=== PATIENT | female | born 1980 | race Caucasian/White ===

== ENCOUNTER 2020-05-31 18:29 | Emergency (ER) | payer SELFPAY ==
[2020-05-31 18:36] VITALS: BP 124/70; PULSE 104; RESP 16; TEMP 36.3; O2SAT 100; BMI 25.4
--- NOTE | 2020-05-31 20:18 | ED_ITS ---
HPI - Extremity Problem General: Chief complaint: Extremity Problem,Nontraumatic Stated complaint: SWOLLEN FEET Time Seen by Provider: 05/31/20 20:18 History of Present Illness: HPI Narrative: Patient is a 39-year-old female comes to the ED with bilateral feet swelling and erythema/warmth of skin. Approximately 3 days ago patient was at a friend's house and they had a couple new puppies. She said the puppies were biting and scratching at her feet a lot that day. She noticed 2 days ago she started getting some swelling and redness in her feet. Today the swelling and redness in both right and left feet has gotten worse and is more painful. Right foot is a little more painful and swollen than the left. Associated symptoms: Deny chest pain, fever(s) or rash Review of Systems Const: Denies: fever(s), chills or fatigue Eyes: Denies: change in vision or eye discomfort ENMT: Denies: throat pain, odynophagia, nasal discharge or nasal congestion Card: Denies: chest pain, palpitations, edema, swelling of feet/ankles, dyspnea on exertion or orthopnea Resp: Denies: dyspnea, productive cough or non-productive cough GI: Denies: abdominal pain, nausea, vomiting, diarrhea, constipation or hematochezia : Denies: flank pain, dysuria or hematuria Musc: Denies: neck pain, back pain or extremity swelling Skin/Breast: Reports: erythema (Redness on feet bilaterally.), skin tenderness (Bilateral feet around the heels) and skin swelling (Bilateral feet around the heels); Denies: rash Neuro: Denies: headache(s), numbness in extremities or weakness in extremities Physical Exam Const: COMMON NORMALS: no acute distress, patient oriented x3 and alert GENERAL APPEARANCE: cooperative and comfortable HENMT: COMMON NORMALS: normocephalic HEAD & SCALP: normocephalic MOUTH: Normal oral and palatal mucosa present THROAT: posterior oropharynx normal and uvula midline Eye: COMMON NORMALS: Equal, round and reactive pupils present PUPIL: Yes Equal, round and reactive pupils present Neck/C-Spine: COMMON NORMALS: supple GENERAL: Yes normal visual inspection Resp: COMMON NORMALS: normal respiratory effort, No retractions, No use of accessory muscles and clear to auscultation bilaterally AUSCULTATION: clear to auscultation bilaterally Cardio: COMMON NORMALS: regular rate, regular rhythm, S1 normal heart sound present, S2 normal heart sound present, No gallops present (Cardio), No clicks present (Cardio), No murmurs present (Cardio) and Peripheral pulses 2+ throughout RATE: regular rate RHYTHM: regular rhythm HEART SOUNDS: S1 normal heart sound present and S2 normal heart sound present PERIPHERAL PULSES: Peripheral pulses 2+ throughout GI: COMMON NORMALS: Normal to inspection, nondistended, normoactive bowel sounds present, Soft to palpation, non-tender and no masses PALPATION: Yes Soft to palpation : COMMON NORMALS: Yes no CVA tenderness BLADDER/KIDNEY EXAM: Yes no CVA tenderness Back/Pelvis: COMMON NORMALS: no CVA tenderness Extremity: NARRATIVE EXTREMITY EXAM: Both right and left heels edema, erythema, warmth and tenderness. No purulent drainage seen. Findings suggestive of cellulitis. No red streaking seen up the legs bilaterally. GENERAL: Yes normal exam except as noted and Yes edema (In the feet around heels bilaterally. Nonpitting edema.) Neuro: COMMON NORMALS: patient oriented x3 and moves all extremities SENSORIUM/ORIENTATION: Yes alert Skin: NARRATIVE SKIN EXAM: Both right and left heels edema, erythema, warmth and tenderness. No purulent drainage seen. Findings suggestive of cellulitis. No red streaking seen up the legs bilaterally. Course Vital Signs: Vital signs: Vital Signs Temperature 97.3 F L 05/31/20 18:36 Pulse Rate 80 05/31/20 21:43 Respiratory Rate 16 05/31/20 21:43 Blood Pressure 116/71 05/31/20 21:43 Pulse Oximetry 100 05/31/20 21:43 MDM - Extremity (Nontraumatic) MDM Narrative: Medical decision making narrative: Patient is a 39-year-old female comes to the ED with bilateral foot edema, pain, erythema and warmth. Right before symptoms started patient says she was at one of her family's houses and they had some puppies that were constantly scratching and biting her feet. Physical exam findings suggestive of developing cellulitis. White blood cell count 11.1 rest of CBC was unremarkable. Potassium 2.8 and the rest of CMP was unremarkable. Patient was given IV Rocephin and p.o. potassium tablet. Patient diagnosed with cellulitis and hypokalemia. Patient was discharged with a prescription for potassium chloride 20 mEq and Augmentin to treat cellulitis. Return to ED precautions given. Follow-up with PCP in 5 days to reevaluate cellulitis. Patient understood agree with plan. Lab Data: Attestation: I reviewed the patient's lab results. Labs: Lab Results 05/31/20 05/31/20 Range/Units 20:28 20:28 WBC 11.1 H (4.0-10.0) 10^3/ uL RBC 4.44 (4.1-5.3) 10^6/u L Hgb 13.7 (11.5-15.3) g/dL Hct 41.6 (37.0-47.0) % MCV 93.7 (81-99) fL MCH 30.9 (28.0-34.0) pg MCHC 32.9 (30.0-36.0) g/dL RDW 12.3 (12.1-15.1) % Plt Count 261 (130-400) 10^3/c mm MPV 10.9 H (7.4-10.4) fL Neut % (Auto) 65.6 % Lymph % (Auto) 26.1 % [place] % (Auto) 5.8 % Eos % (Auto) 1.8 % Baso % (Auto) 0.4 % Neut # (Auto) 7.30 (1.8-7.7) 10^3/u L Lymph # (Auto) 2.9 (0.8-4.8) 10^3/u L [place] # (Auto) 0.7 (0.2-0.9) 10^3/u L Eos # (Auto) 0.2 (0.0-0.8) 10^3/u L Baso # (Auto) 0.0 (0.0-0.1) 10^3/u L Nucleated RBC % (a uto) 0 % Nucleated RBCs # 0.0 /100WBC Sodium 141 (136-145) mmol/L Potassium 2.8 L* (3.5-5.1) mmol/L Chloride 103 (98-107) mmol/L Carbon Dioxide 30 H (22-29) mmol/L Anion Gap 10.8 (5-19) BUN 11 (6-20) mg/dL Creatinine 0.6 (0.5-0.9) mg/dL GFR Calculation 110.7 (90-130) mL/min Glucose 103 (65-115) mg/dL Calculated Osmolal ity 292 (285-295) mOsm/k g Calcium 9.5 (8.5-10.5) mg/dL Total Bilirubin 0.2 (0.15-1.2) mg/dL AST 12 (0-32) U/L ALT 12 (0-33) U/L Alkaline Phosphata se 76 (35-105) IU/L Total Protein 6.9 (6.6-8.7) g/dL Albumin 4.2 (3.5-5.2) g/dL Globulin 2.7 (1.3-4.6) g/dL Discharge Plan Discharge Patient Disposition: Home Clinical Impression: Hypokalemia Cellulitis Qualifiers: Site of cellulitis: extremity Site of cellulitis of extremity: lower extremity Laterality: unspecified laterality Qualified Code(s): L03.119 - Cellulitis of unspecified part of limb Condition: Stable Prescriptions: New Augmentin 500-125 mg tablet 1 tab PO BID 10 Days Qty: 20 RF: 0 potassium chloride 20 mEq packet 20 meq PO DAILY 4 Days Qty: 30 RF: 0 No Action Excedrin Extra Strength 250-250-65 mg Tablet 1 tab PO Q6H PRN (Reason: Pain) RF: 0 Discharge Orders: Discharge ED (Routine); Ordered 05/31/20 Ordered By: Bobo Fabian Referrals: Daniel Perez MD [Primary Care Provider] - Discharge Diet: Regular Discharge Activity: Resume usual activity Patient Instructions: Cellulitis (ED) Activity Restrictions/Additional Instructions: Follow-up with medical provider as directed in 5 days to reevaluate cellulitis. Take medications as prescribed. You should start seen improvement after being on antibiotics for 3 days. Return to the ER or your medical provider if condition worsens. Please read and understand discharge instructions. If any questions, please ask. Coding Level of Care Code ED Abrasive Coating Machine Operator for Vikag Fwd Exam Comprehensive
[2020-05-31] MEDS: sodium chloride 0.9% 500 ML 999 ML IV (20:52)
[2020-05-31] MEDS: cefTRIAXone 2,000 MG in sodium chloride 0.9% (plus) 50 ML 100 MG IV (20:52)
[2020-05-31 21:00] LABS: Basophils % 0.4 %; Eosinophils # 0.2 10^3/uL (0.0-0.8); Eosinophils % 1.8 %; Hematocrit 41.6 % (37.0-47.0); Hemoglobin 13.7 g/dL (11.5-15.3); Lymphocytes # 2.9 10^3/uL (0.8-4.8); Lymphocytes % 26.1 %; Mean Corpuscular HGB Conc 32.9 g/dL (30.0-36.0); Mean Corpuscular Hemoglobin 30.9 pg (28.0-34.0); Mean Corpuscular Volume 93.7 fL (81-99); Mean Platelet Volume 10.9 fL (7.4-10.4); Monocytes # 0.7 10^3/uL (0.2-0.9); Monocytes % 5.8 %; Neutrophils % 65.6 %; Nucleated Red Blood Cells % 0 %; Platelet Count 261 10^3/cmm (130-400); Red Blood Count 4.44 10^6/uL (4.1-5.3); Red Cell Distribution Width 12.3 % (12.1-15.1); White Blood Count 11.1 10^3/uL (4.0-10.0)
[2020-05-31 21:24] LABS: Alanine Aminotransferase 12 U/L (0-33); Albumin Level 4.2 g/dL (3.5-5.2); Alkaline Phosphatase 76 IU/L (35-105); Anion Gap 10.8 (5-19); Aspartate Amino Transferase 12 U/L (0-32); Blood Urea Nitrogen 11 mg/dL (6-20); Calcium 9.5 mg/dL (8.5-10.5); Carbon Dioxide 30 mmol/L (22-29); Chloride 103 mmol/L (98-107); Creatinine Clr Calc Pharmacy 127.1262; Globulin 2.7 g/dL (1.3-4.6); Glomerular Filtration Rate 110.7 mL/min (90-130); Glucose 103 mg/dL (65-115); Osmolality Calculated 292 mOsm/kg (285-295); Sodium 141 mmol/L (136-145); Total Bilirubin 0.2 mg/dL (0.15-1.2); Total Protein 6.9 g/dL (6.6-8.7)
[2020-05-31 21:43] VITALS: BP 116/71; PULSE 80; RESP 16; O2SAT 100
[2020-05-31 21:47] LABS: Potassium 2.8 mmol/L (3.5-5.1)
[2020-05-31] MEDS: potassium chloride ER 20 mEq Tablet PO (22:05)
== END 2020-05-31 21:45 | disposition home or self-care (01) ==
PROVIDERS: Emergency Provider Physician Assistant; PCP Family Medicine
DX: L03.116 Cellulitis of left lower limb (principal); L03.115 Cellulitis of right lower limb; E87.6 Hypokalemia
CPT/HCPCS: 12345; 80053; 85025; 87040; 96365; 96375; 99281; 99283; J0696; J2930; J7040

== ENCOUNTER 2020-06-07 23:49 | Emergency (ER) | payer SELFPAY ==
[2020-06-07 23:54] VITALS: BP 131/92; PULSE 101; RESP 16; TEMP 36.7; O2SAT 100; BMI 25.0
[2020-06-08] VITALS (8 sets, daily range): BP systolic 126–143; BP diastolic 67–87; PULSE 83–103; RESP 16–17; TEMP 36.7; O2SAT 100
--- NOTE | 2020-06-08 00:06 | W.ED.ARRPALP ---
HPI - Arrhythmia/Palpitations General: Chief Complaint: Arrhythmia/Palpitations Stated Complaint: erratic hr Time Seen by Provider: 06/08/20 00:05 History of Present Illness: HPI narrative: 39-year-old female comes in with palpitations. She states that she would feel her heart speed up to 111 and down to 82. This is gone on/off for the past 2 days. She does admit she has been having some anxiety resulting in chest pain. Patient also recently was diagnosed with cellulitis in her right foot. She states it is doing much better at this time. She states she is not having any chest pain now. MD complaint: heart racing and palpitations Onset (ago): day(s) (2) Duration: intermittent Severity: mild Context: occurred during rest Associated symptoms: Reports anxiety and nausea; Deny cough, diaphoresis, paresthesias, pre-syncope, sense of impending doom, short of breath, syncope or vomiting Review of Systems General: Reports: 10 or more systems reviewed and unremarkable except in HPI and below Const: Denies: diaphoresis Card: Reports: chest pain (With anxiety) and palpitations; Denies: edema, swelling of feet/ankles, lightheadedness, syncope, pre-syncope, leg pain with exertion or acrocyanosis GI: Reports: nausea; Denies: vomiting Musc: Reports: joint redness (Right foot) and joint warmth; Denies: extremity swelling, joint pain, joint swelling, joint stiffness or limited range of motion Skin/Breast: Reports: other (Patient's right foot is minimally erythematous, it does ritchie well. ) Psych: Reports: anxiety [facility] Female Reproductive History: Date of last menstrual period: 05/29/20 Physical Exam Narrative: EXAM NARRATIVE: 39-year-old female appears to be in no acute distress. Const: COMMON NORMALS: no acute distress, average body habitus, patient oriented x3, no limitations, healthy appearing, alert and well nourished GENERAL APPEARANCE: well kempt Neck/C-Spine: COMMON NORMALS: full ROM, supple and no JVD Chest: COMMONS NORMALS: normal inspection of the chest and normal palpation of entire chest wall Resp: COMMON NORMALS: normal respiratory effort, No use of accessory muscles and clear to auscultation bilaterally EFFORT & INSPECTION: Yes able to speak in complete sentences, Yes symmetric chest movement, No tachypneic and No respiratory distress AUSCULTATION: clear to auscultation bilaterally Cardio: COMMON NORMALS: no JVD, regular rate, regular rhythm, No gallops present (Cardio), No clicks present (Cardio), No murmurs present (Cardio), No rub (Cardio) and Peripheral pulses 2+ throughout RATE: regular rate RHYTHM: regular rhythm PERIPHERAL PULSES: Peripheral pulses 2+ throughout GI: COMMON NORMALS: Normal to inspection, nondistended, normoactive bowel sounds present, Soft to palpation, non-tender, No hepatosplenomegaly present, no masses and no bruits INSPECTION: Yes normal to inspection PALPATION: Yes Soft to palpation and Yes No hepatosplenomegaly present : COMMON NORMALS: Yes no CVA tenderness BLADDER/KIDNEY EXAM: Yes no CVA tenderness Back/Pelvis: COMMON NORMALS: no CVA tenderness Neuro: COMMON NORMALS: patient oriented x3 SENSORIUM/ORIENTATION: Yes alert Psych: COMMON NORMALS: mental status grossly normal, Normal thought process present, cooperative, normal affect, speech normal and activity/motor behavior normal APPEARANCE: Yes grossly normal and Yes well kempt ATTITUDE: Yes calm and Yes engaged SPEECH: Yes normal speech MOOD & AFFECT: Yes anxious (Mildly anxious) THOUGHT PROCESS: Normal thought process present Skin: COMMON NORMALS: no rashes or lesions noted, no wounds, turgor normal and no jaundice GENERAL SKIN EXAM: no rashes or lesions noted and turgor normal Course Vital Signs: Vital signs: Vital Signs Temperature 98.1 F 06/08/20 03:46 Pulse Rate 88 06/08/20 03:46 Respiratory Rate 17 06/08/20 03:46 Blood Pressure 126/82 06/08/20 03:46 Pulse Oximetry 100 06/08/20 03:46 MDM - Arrhythmia/Palpitations Lab Data: Labs: Lab Results 06/08/20 06/08/20 06/08/20 Range/Units 00:51 00:51 00:51 WBC 8.1 (4.0-10.0) 10^3/ uL RBC 4.36 (4.1-5.3) 10^6/u L Hgb 13.3 (11.5-15.3) g/dL Hct 41.3 (37.0-47.0) % MCV 94.7 (81-99) fL MCH 30.5 (28.0-34.0) pg MCHC 32.2 (30.0-36.0) g/dL RDW 12.4 (12.1-15.1) % Plt Count 289 (130-400) 10^3/c mm MPV 9.6 (7.4-10.4) fL Neut % (Auto) 56.7 % Lymph % (Auto) 34.4 % [place] % (Auto) 6.4 % Eos % (Auto) 2.1 % Baso % (Auto) 0.2 % Neut # (Auto) 4.59 (1.8-7.7) 10^3/u L Lymph # (Auto) 2.8 (0.8-4.8) 10^3/u L [place] # (Auto) 0.5 (0.2-0.9) 10^3/u L Eos # (Auto) 0.2 (0.0-0.8) 10^3/u L Baso # (Auto) 0.0 (0.0-0.1) 10^3/u L Nucleated RBC % (a uto) 0 % Nucleated RBCs # 0.0 /100WBC Sodium 138 (136-145) mmol/L Potassium 3.3 L (3.5-5.1) mmol/L Chloride 100 (98-107) mmol/L Carbon Dioxide 31 H (22-29) mmol/L Anion Gap 10.3 (5-19) BUN 8 (6-20) mg/dL Creatinine 0.6 (0.5-0.9) mg/dL GFR Calculation 110.7 (90-130) mL/min Glucose 90 (65-115) mg/dL Calculated Osmolal ity 284 L (285-295) mOsm/k g Calcium 9.1 (8.5-10.5) mg/dL Magnesium 2.0 (1.7-2.3) mg/dL Total Bilirubin 0.2 (0.15-1.2) mg/dL AST 10 (0-32) U/L ALT 13 (0-33) U/L Alkaline Phosphata se 76 (35-105) IU/L Troponin T Baselin e 6 (0-10) ng/L Total Protein 7.0 (6.6-8.7) g/dL Albumin 4.2 (3.5-5.2) g/dL Globulin 2.8 (1.3-4.6) g/dL Discharge Plan Discharge Patient Disposition: Home Clinical Impression: Palpitations, Acute hypokalemia, Tobacco abuse Condition: Stable Prescriptions: No Action Excedrin Extra Strength 250-250-65 mg Tablet 1 tab PO Q6H PRN (Reason: Pain) RF: 0 Augmentin 500-125 mg tablet 1 tab PO BID 10 Days Qty: 20 RF: 0 Discharge Orders: Discharge ED (Routine); Ordered 06/08/20 Ordered By: Jack Blanton Referrals: Daniel Perez MD [Primary Care Provider] - Discharge Diet: Advance as tolerated Discharge Activity: Resume usual activity Activity Restrictions/Additional Instructions: Continue the Augmentin and potassium . Coding Level of Care Code ED Ct Mri Technologist for Vikag Fwd Exam Comprehensive
--- NOTE | 2020-06-08 00:07 | XR_ITS ---
WS: [id number] Portable AP upright chest, 06/08/2020 Clinical Data: Palpitations Comparison: PA chest, 03/25/2011. Findings: No nodules, masses or effusions are seen. The heart is normal. The pulmonary vascularity is not increased. No pneumonia or pneumothorax is seen. XR/XR chest 1V portable [id number] Impression: Negative chest.
[2020-06-08 01:01] LABS: Basophils % 0.2 %; Eosinophils # 0.2 10^3/uL (0.0-0.8); Eosinophils % 2.1 %; Hematocrit 41.3 % (37.0-47.0); Hemoglobin 13.3 g/dL (11.5-15.3); Lymphocytes # 2.8 10^3/uL (0.8-4.8); Lymphocytes % 34.4 %; Mean Corpuscular HGB Conc 32.2 g/dL (30.0-36.0); Mean Corpuscular Hemoglobin 30.5 pg (28.0-34.0); Mean Corpuscular Volume 94.7 fL (81-99); Mean Platelet Volume 9.6 fL (7.4-10.4); Monocytes # 0.5 10^3/uL (0.2-0.9); Monocytes % 6.4 %; Neutrophils # 4.59 10^3/uL (1.8-7.7); Neutrophils % 56.7 %; Nucleated Red Blood Cells % 0 %; Platelet Count 289 10^3/cmm (130-400); Red Blood Count 4.36 10^6/uL (4.1-5.3); Red Cell Distribution Width 12.4 % (12.1-15.1); White Blood Count 8.1 10^3/uL (4.0-10.0)
[2020-06-08 01:23] LABS: Alanine Aminotransferase 13 U/L (0-33); Albumin Level 4.2 g/dL (3.5-5.2); Alkaline Phosphatase 76 IU/L (35-105); Anion Gap 10.3 (5-19); Aspartate Amino Transferase 10 U/L (0-32); Blood Urea Nitrogen 8 mg/dL (6-20); Calcium 9.1 mg/dL (8.5-10.5); Carbon Dioxide 31 mmol/L (22-29); Chloride 100 mmol/L (98-107); Globulin 2.8 g/dL (1.3-4.6); Glomerular Filtration Rate 110.7 mL/min (90-130); Glucose 90 mg/dL (65-115); Osmolality Calculated 284 mOsm/kg (285-295); Potassium 3.3 mmol/L (3.5-5.1); Sodium 138 mmol/L (136-145); Total Bilirubin 0.2 mg/dL (0.15-1.2)
[2020-06-08 02:26] LABS: Troponin(5th) Baseline 6 ng/L (0-10)
== END 2020-06-08 03:46 | disposition home or self-care (01) ==
PROVIDERS: Emergency Provider Emergency Medicine; PCP Family Medicine
DX: R00.2 Palpitations (principal); E87.6 Hypokalemia; Z72.0 Tobacco use
CPT/HCPCS: 12345; 71045; 80053; 83735; 84484; 85025; 99282; 99283

== ENCOUNTER 2021-02-01 14:09 | Emergency (ER) | payer SELFPAY ==
[2021-02-01 14:29] VITALS: BP 117/72; PULSE 109; RESP 18; TEMP 36.9; O2SAT 99; BMI 25.0
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
[2021-02-01 15:03] VITALS: BP 124/74; PULSE 71; RESP 18; TEMP 36.7; O2SAT 99
== END 2021-02-01 16:38 | disposition home or self-care (01) ==
PROVIDERS: Emergency Provider Physician Assistant
DX: M62.830 Muscle spasm of back (principal); V47.5XXA Car driver injured in collision with fixed or stationary object in traffic accident, initial encounter
CPT/HCPCS: 72100; 99282

== ENCOUNTER 2023-05-21 22:47 | Emergency (ER) | payer OTHER, SELFPAY ==
[2023-05-21 22:50] VITALS: BP 137/99; PULSE 129; RESP 23; TEMP 36.9; O2SAT 98; BMI 25.0
--- NOTE | 2023-05-21 22:56 | ECG_ITS ---
[facility] Test Date: 2023-05-21 Pat Name: Nafisa Woodard Department: Room: Gender: Female Art Instructor: : 1980 Requested By: Owen Mcclellan Order Number: [id number] Thom MD: Bang June M.D. Measurements Intervals Ellis Rate: 129 P: 74 OK: 147 QRS: 20 QRSD: 71 T: 68 QT: 333 QTc: 489 Interpretive Statements SINUS TACHYCARDIA NONSPECIFIC T-WAVE ABNORMALITY No previous ECG available for comparison Electronically Signed On 05-22-2023 7:40:26 PEDAL ASSEMBLER by Bang June M.D. [email or web address] Medicalh[facility] hospitalAlder Biopharmaceuticalsgerman hospital.mFoundry/store/NU/[id number] [email or web address]
[2023-05-21 23:04] LABS: Glucose Point of Care 112 mg/dL (70-110)
--- NOTE | 2023-05-21 23:04 | CTR_ITS ---
PROCEDURE INFORMATION: Exam: CTA Chest With Contrast Exam date and time: 05/21/2023 11:18 PM Age: 42 years old Clinical indication: Dyspnea and tachypnea; Additional info: Covid positive, cp, tachycardia, dyspnea, tachypnea TECHNIQUE: Imaging protocol: Computed tomographic angiography of the chest with contrast. Exam focused on the arteries. 3D rendering (Not supervised by radiologist): MIP and/or 3D reconstructed images were created by the technologist. Radiation optimization: All CT scans at this facility use at least one of these dose optimization techniques: automated exposure control; mA and/or kV adjustment per patient size (includes targeted exams where dose is matched to clinical indication); or iterative reconstruction. Contrast material: OMNI 350; Contrast volume: 80 ml; Contrast route: INTRAVENOUS (IV); COMPARISON: CR XR chest 1V portable [id number] 06/08/2020 12:24 AM RADIATION DOSE METRICS: Total DLP (mGy-cm): 541.68 FINDINGS: Pulmonary arteries: No pulmonary embolus. Aorta: Unremarkable. No aortic aneurysm. No aortic dissection. Lungs: No focal consolidation, pleural effusion or suspicious pulmonary nodules or masses. Pleural spaces: See Lungs finding. Heart: Unremarkable. No cardiomegaly. No pericardial effusion. Lymph nodes: Unremarkable. No enlarged lymph nodes. Gallbladder and bile ducts: The gallbladder is absent. Bones/joints: Unremarkable. No acute fracture. Soft tissues: Unremarkable. CT/CT angio chest PE protcl [id number] IMPRESSION: 1. No pulmonary embolus. 2. No focal consolidation, pleural effusion or suspicious pulmonary nodules or masses.
--- NOTE | 2023-05-21 23:09 | ED_ITS ---
HPI - Chest Pain 2 General: Chief Complaint: Chest Pain Stated Complaint: cp and neck pain Time Seen by Provider: 05/21/23 22:56 History of Present Illness: Patient presents to the ER with intermittent chest pain/pressure. Patient said this started about a week ago. It is worse with inspiration. Patient got diagnosed with COVID at [facility] in [place] about a week ago. Patient did not have this before then. Patient denies any fever chills shortness of breath. Patient is tachycardic and tachypneic. Patient does have a history of migraines and low potassium. Review of Systems 2 General: Reports: 10 or more systems reviewed and unremarkable except in HPI and below Physical Exam 2 Const: COMMON NORMALS: no acute distress, average body habitus, patient oriented x3, no limitations, healthy appearing, alert and well nourished HENMT: COMMON NORMALS: normocephalic, atraumatic, hearing grossly normal bilaterally, external ears normal, Normal external nose present, moist oral mucous membranes and oropharynx normal HEAD & SCALP: normocephalic and atraumatic NOSE: Normal external nose present EXTERNAL EAR: Yes external ears normal Eye: COMMON NORMALS: Equal, round and reactive pupils present, EOMs intact bilaterally, conjunctivae normal and no scleral icterus CONJUNCTIVA: Yes conjunctivae normal PUPIL: Yes Equal, round and reactive pupils present Neck/C-Spine: COMMON NORMALS: full ROM, no lymphadenopathy, supple, no meningeal signs, no JVD and Thyroid normal THYROID: Thyroid normal Chest: COMMONS NORMALS: normal inspection of the chest and normal palpation of entire chest wall Resp: COMMON NORMALS: normal respiratory effort, No retractions, No use of accessory muscles and clear to auscultation bilaterally AUSCULTATION: clear to auscultation bilaterally Cardio: COMMON NORMALS: no JVD, regular rate, regular rhythm, S1 normal heart sound present, S2 normal heart sound present, No gallops present (Cardio), No clicks present (Cardio), No murmurs present (Cardio) and No rub (Cardio) R ATE: regular rate RHYTHM: regular rhythm HEART SOUNDS: S1 normal heart sound present and S2 normal heart sound present GI: COMMON NORMALS: Normal to inspection, nondistended, normoactive bowel sounds present, Soft to palpation, non-tender, No hepatosplenomegaly present and no masses PALPATION: Yes Soft to palpation and Yes No hepatosplenomegaly present Neuro: COMMON NORMALS: patient oriented x3 SENSORIUM/ORIENTATION: Yes alert MENINGEAL SIGNS: Yes no meningeal signs Course 2 Vital Signs: Vital signs: Vital Signs Temperature 98.4 F 05/21/23 22:50 Pulse Rate 99 05/22/23 01:15 Respiratory Rate 23 H 05/21/23 22:50 Blood Pressure 137/99 05/22/23 01:15 Pulse Oximetry 94 05/22/23 01:15 Oxygen Delivery Me thod Room Air 05/22/23 01:15 MDM - Chest Pain Medical Decision Making Patient was worked up in a standard chest pain fashion and included a CTA due to her COVID positivity. All of which was essentially negative except for mildly elevated white blood cell count of 13.89. Patient be diagnosed with atypical chest pain and COVID and should follow-up with her PCP within the next 7 to 10 days on an as-needed basis. Differential Diagnosis Unlikely acute massive pulmonary embolism, acute respiratory failure, acute myocardial infarction, cardiac arrest or sudden cardiac Medical Records I reviewed the patient's medical records. Lab Data I reviewed the patient's lab results. 05/21/23 22:59 05/21/23 22:59 Radiology Impressions Chest CTA 05/21/23 23:04 IMPRESSION: 1. No pulmonary embolus. 2. No focal consolidation, pleural effusion or suspicious pulmonary nodules or masses. Laboratory Results WBC 13.89 10^3/uL (3.29-11.43) H 05/21/23 22:59 RBC 5.24 10^6/uL (3.85-5.65) 05/21/23 22:59 Hgb 16.10 g/dL (11.27-16.99) 05/21/23 22:59 Hct 47.2 % (36-47) H 05/21/23 22:59 MCV 90.1 fl (85-98) 05/21/23 22:59 MCH 30.7 pg (27-33) 05/21/23 22:59 MCHC 34.1 g/dL (30-55) 05/21/23 22:59 RDW 12.6 % (12.1-15.1) 05/21/23 22:59 Plt Count 343 10^3/cmm (157-399) 05/21/23 22:59 MPV 9.3 fL (7.4-10.4) 05/21/23 22:59 Neut % (Auto) 68.7 % 05/21/23 22:59 Lymph % (Auto) 24.9 % 05/21/23 22:59 [place] % (Auto) 4.6 % 05/21/23 22:59 Eos % (Auto) 1.1 % 05/21/23 22:59 Baso % (Auto) 0.3 % 05/21/23 22:59 Neut # (Auto) 9.55 10^3/uL (1.8-7.7) H 05/21/23 22:59 Lymph # (Auto) 3.5 10^3/uL (0.8-4.8) 05/21/23 22:59 [place] # (Auto) 0.6 10^3/uL (0.2-0.9) 05/21/23 22:59 Eos # (Auto) 0.2 10^3/uL (0.0-0.8) 05/21/23 22:59 Baso # (Auto) 0.0 10^3/uL (0.0-0.1) 05/21/23 22:59 Nucleated RBC % (auto) 0 % 05/21/23 22:59 Nucleated RBCs # 0.0 /100WBC 05/21/23 22:59 Sodium 138 mmol/L (136-145) 05/21/23 22:59 Potassium 4.3 mmol/L (3.5-5.1) 05/21/23 22:59 Chloride 99 mmol/L (98-107) 05/21/23 22:59 Carbon Dioxide 28 mmol/L (22-29) 05/21/23 22:59 Anion Gap 15.3 (5-19) 05/21/23 22:59 BUN 11 mg/dL (6-20) 05/21/23 22:59 Creatinine 0.7 mg/dL (0.5-0.9) 05/21/23 22:59 GFR Calculation 91.3 mL/min (90-130) 05/21/23 22:59 Glucose 112 mg/dL (65-115) 05/21/23 22:59 POC Glucose 112 mg/dL (70-110) H 05/21/23 23:01 Calculated Osmolality 286 mOsm/kg (285-295) 05/21/23 22:59 Calcium 10.1 mg/dL (8.5-10.5) 05/21/23 22:59 Total Bilirubin 0.4 mg/dL (0.15-1.2) 05/21/23 22:59 AST 12 U/L (0-32) 05/21/23 22:59 ALT 13 U/L (0-33) 05/21/23 22:59 Alkaline Phosphatase 73 U/L (35-105) 05/21/23 22:59 Troponin T Baseline 7 ng/L (0-10) 05/21/23 22:59 Troponin T 120 Minute 6.00 ng/L (0-10) 05/22/23 01:22 Delta Troponin T -1.00 ABS# (0-10) L 05/22/23 01:22 Total Protein 7.7 g/dL (6.6-8.7) 05/21/23 22:59 Albumin 4.7 g/dL (3.5-5.2) 05/21/23 22:59 Globulin 3.0 g/dL (1.3-4.6) 05/21/23 22:59 All radiology interpretation(s) finalized by discharge EKG Data EKG 1: I personally reviewed and interpreted this EKG as follows: EKG interpretation date: 05/21/23 EKG interpretation time: 22:52 Prior EKG tracings: not available for review Interpretation: EKG shows ventricular rate of 109 beats minute, WA interval 147, QRS duration 171, QTc of 409, sinus tachycardia, nonspecific T wave abnormality, Discharge Plan Discharge Patient Disposition: Home Clinical Impression: Atypical chest pain, COVID Condition: Stable Prescriptions: No Action Excedrin Migraine 250-250-65 mg Tablet 2 tab PO Q6H PRN (Reason: Migraine Headache) BC Pain Relief 845-65 mg Powder In Packet 1 ea PO ONCE potassium chloride 20 mEq tablet extended release 20 meq PO DAILY PRN (Reason: unknown) naproxen 500 mg tablet 500 mg PO BID PRN (Reason: pain) Qty: 20 0RF methocarbamol 750 mg tablet 750 mg PO Q8H Qty: 21 0RF Discharge Orders: Discharge ED (Routine); Ordered 05/22/23 Ordered By: Owen Mcclellan Patient Instructions: Noncardiac Chest Pain (ED), Long COVID (ED) Activity Restrictions/Additional Instructions: Your workup in ER did not show a cardiac cause of your chest pain. It is felt this may be due to your COVID diagnosis. Please follow-up with your family practice doctor within next 7 to 10 days for further evaluation and treatment as needed. Coding Level of Care Code ED Certified Nurses' Aide for Rocio Edward
[2023-05-21 23:15] LABS: Basophils % 0.3 %; Eosinophils # 0.2 10^3/uL (0.0-0.8); Eosinophils % 1.1 %; Hematocrit 47.2 % (36-47); Lymphocytes # 3.5 10^3/uL (0.8-4.8); Lymphocytes % 24.9 %; Mean Corpuscular HGB Conc 34.1 g/dL (30-55); Mean Corpuscular Hemoglobin 30.7 pg (27-33); Mean Corpuscular Volume 90.1 fl (85-98); Mean Platelet Volume 9.3 fL (7.4-10.4); Monocytes # 0.6 10^3/uL (0.2-0.9); Monocytes % 4.6 %; Neutrophils # 9.55 10^3/uL (1.8-7.7); Neutrophils % 68.7 %; Nucleated Red Blood Cells % 0 %; Platelet Count 343 10^3/cmm (157-399); Red Blood Count 5.24 10^6/uL (3.85-5.65); Red Cell Distribution Width 12.6 % (12.1-15.1); White Blood Count 13.89 10^3/uL (3.29-11.43)
[2023-05-21 23:24] LABS: Troponin(5th) Baseline 7 ng/L (0-10)
[2023-05-21 23:26] LABS: Alanine Aminotransferase 13 U/L (0-33); Albumin Level 4.7 g/dL (3.5-5.2); Alkaline Phosphatase 73 U/L (35-105); Anion Gap 15.3 (5-19); Aspartate Amino Transferase 12 U/L (0-32); Blood Urea Nitrogen 11 mg/dL (6-20); Calcium 10.1 mg/dL (8.5-10.5); Carbon Dioxide 28 mmol/L (22-29); Chloride 99 mmol/L (98-107); Glomerular Filtration Rate 91.3 mL/min (90-130); Glucose 112 mg/dL (65-115); Osmolality Calculated 286 mOsm/kg (285-295); Potassium 4.3 mmol/L (3.5-5.1); Sodium 138 mmol/L (136-145); Total Bilirubin 0.4 mg/dL (0.15-1.2); Total Protein 7.7 g/dL (6.6-8.7)
[2023-05-21] MEDS: iohexol 350 mg/mL 500 mL Btl (per mL) IV (23:31)
[2023-05-21 23:40] VITALS: BP 137/99; PULSE 116; O2SAT 100
--- NOTE | 2023-05-22 00:56 | ECG_ITS ---
[facility] Test Date: 2023-05-21 Pat Name: Nafisa Woodard Department: Room: Gender: Female [employer] [place]: : 1980 Requested By: Owen Mcclellan Order Number: [id number] Thom MD: Bang June M.D. Measurements Intervals [place] Rate: 129 P: 74 NM: 147 QRS: 20 QRSD: 71 T: 68 QT: 333 QTc: 489 Interpretive Statements SINUS TACHYCARDIA NONSPECIFIC T-WAVE ABNORMALITY No previous ECG available for comparison Electronically Signed On 05-22-2023 7:40:10 [employer] by Bang June M.D. [id number]
[2023-05-22 01:15] VITALS: BP 137/99; PULSE 99; O2SAT 94
[2023-05-22 02:05] VITALS: BP 137/99; PULSE 96; O2SAT 96
== END 2023-05-22 02:07 | disposition home or self-care (01) ==
PROVIDERS: Emergency Provider Emergency Medicine
DX: R07.89 Other chest pain (principal); U07.1 COVID-19
CPT/HCPCS: 36416; 71275; 80053; 82962; 84484; 85025; 93005; 99285; Q9967

== ENCOUNTER 2024-03-27 20:59 | Emergency (ER) | payer OTHER, SELFPAY ==
[2024-03-27 20:59] VITALS: BP 144/76; PULSE 96; RESP 14; TEMP 36.7; O2SAT 93; BMI 28.1
--- NOTE | 2024-03-27 21:30 | CTR_ITS ---
PROCEDURE INFORMATION: Exam: CT Head Without Contrast Exam date and time: 03/27/2024 10:12 PM Age: 43 years old Clinical indication: Headache; Patient HX: C/O MOJICA and neck stiffness/pain with lethargy. TECHNIQUE: Imaging protocol: Computed tomography of the head without contrast. Radiation optimization: All CT scans at this facility use at least one of these dose optimization techniques: automated exposure control; mA and/or kV adjustment per patient size (includes targeted exams where dose is matched to clinical indication); or iterative reconstruction. COMPARISON: No relevant prior studies available. RADIATION DOSE METRICS: Total DLP (mGy-cm): 1057.28 FINDINGS: Brain: No evidence of intra-axial or extra-axial hemorrhage. No mass effect or midline shift. Haddad-white differentiation is maintained. Basilar cisterns are patent. Cerebral ventricles: No hydrocephalus. Paranasal sinuses: The visualized paranasal sinuses are well aerated. Mastoid air cells: The visualized mastoids and middle ears are clear. Bones: Calvarium is intact. No evidence of acute fracture. Soft tissues: No gross soft tissue abnormality. CT/CT head wo con* [id number] IMPRESSION: 1. No acute intracranial abnormality.
--- NOTE | 2024-03-27 21:30 | CTR_ITS ---
PROCEDURE INFORMATION: Exam: CT Cervical Spine Without Contrast Exam date and time: 03/27/2024 10:15 PM Age: 43 years old Clinical indication: Neck pain; Patient HX: C/O MOJICA and neck stiffness/pain with lethargy. TECHNIQUE: Imaging protocol: Computed tomography of the cervical spine without contrast. Radiation optimization: All CT scans at this facility use at least one of these dose optimization techniques: automated exposure control; mA and/or kV adjustment per patient size (includes targeted exams where dose is matched to clinical indication); or iterative reconstruction. COMPARISON: CT head wo con* [id number] 03/27/2024 10:12 PM RADIATION DOSE METRICS: Total DLP (mGy-cm): 734.37 FINDINGS: Bones/joints: No evidence of acute fracture or subluxation of the cervical spine. The craniocervical junction including the atlantoaxial and atlantooccipital articulations are intact. C2-C3: Uncovertebral hypertrophy results in moderate-severe left-sided foraminal stenosis. No central stenosis. C3-C4: Uncovertebral hypertrophy results in mild bilateral foraminal stenosis. No central stenosis. C4-C5: Uncinate hypertrophy results in mild right-sided foraminal stenosis. No central stenosis. C5-C6: Uncovertebral hypertrophy results in mild-moderate bilateral foraminal stenosis. No central stenosis. C6-C7: Uncovertebral hypertrophy results in moderate bilateral foraminal stenosis. Posterior disc osteophyte complex results in mild-moderate central stenosis. C7-T1: No central or foraminal stenosis. Lungs: The visualized lung apices are clear. Soft tissues: 2 cm left-sided thyroid nodule. No significant prevertebral edema. No evidence of fluid collection or hematoma. CT/CT cervical spin wo con* [id number] IMPRESSION: 1. No evidence of fracture or subluxation of the cervical spine. 2. 2 cm left-sided thyroid nodule. Correlation with thyroid function tests and follow-up outpatient thyroid ultrasound is recommended.
--- NOTE | 2024-03-27 21:30 | CTR_ITS ---
PROCEDURE INFORMATION: Exam: CTA Head With Contrast, Arteriography Exam date and time: 03/27/2024 10:18 PM Age: 43 years old Clinical indication: Headache; Patient HX: C/O MOJICA and neck stiffness/pain with lethargy. ; Additional info: Headache, neck pain, stiff TECHNIQUE: Imaging protocol: Computed tomographic angiography of the head with contrast. Exam focused on the arteries. 3D rendering (Not supervised by radiologist): MIP and/or 3D reconstructed images were created by the technologist. Radiation optimization: All CT scans at this facility use at least one of these dose optimization techniques: automated exposure control; mA and/or kV adjustment per patient size (includes targeted exams where dose is matched to clinical indication); or iterative reconstruction. Contrast material: OMNI 350; Contrast volume: 100 ml; Contrast route: INTRAVENOUS (IV); COMPARISON: CT head wo con* [id number] 03/27/2024 10:12 PM RADIATION DOSE METRICS: Total DLP (mGy-cm): 471.62 FINDINGS: ANTERIOR CIRCULATION: Right internal carotid artery: Patent. Right middle cerebral artery: Patent. Right anterior cerebral artery: Patent. Left internal carotid artery: Patent. Left middle cerebral artery: Patent. Left anterior cerebral artery: Patent. POSTERIOR CIRCULATION: Right vertebral artery: Patent. Left vertebral artery: Patent. Basilar artery: Patent. Right posterior cerebral artery: Patent. Left posterior cerebral artery: Patent. PROCEDURE INFORMATION: Exam: CTA Neck With Contrast Exam date and time: 03/27/2024 10:18 PM Age: 43 years old Clinical indication: Headache; Patient HX: C/O MOJICA and neck stiffness/pain with lethargy. ; Additional info: Headache, neck pain, stiff TECHNIQUE: Imaging protocol: Computed tomographic angiography of the neck with contrast. Exam focused on the cervical segments of the vasculature. 3D rendering (Not supervised by radiologist): MIP and/or 3D reconstructed images were created by the technologist. Radiation optimization: All CT scans at this facility use at least one of these dose optimization techniques: automated exposure control; mA and/or kV adjustment per patient size (includes targeted exams where dose is matched to clinical indication); or iterative reconstruction. Contrast material: OMNI 350; Contrast volume: 100 ml; Contrast route: INTRAVENOUS (IV); COMPARISON: CT cervical spin wo con* [id number] 03/27/2024 10:15 PM RADIATION DOSE METRICS: Total DLP (mGy-cm): 471.62 FINDINGS: Right common carotid artery: Patent. No evidence of hemodynamically significant stenosis. Right internal carotid artery: Patent. No evidence of hemodynamically significant stenosis. Right external carotid artery: Patent. Left common carotid artery: Patent. No evidence of hemodynamically significant stenosis. Left internal carotid artery: Patent. No evidence of hemodynamically significant stenosis. Left external carotid artery: Patent. Right vertebral artery: Patent. Left vertebral artery: Patent. Soft tissues: No gross soft tissue abnormality. No evidence of fluid collection or hematoma. Bones/joints: Please see separate report of concurrent CT of the cervical spine for nonvascular findings. CT/CT angio headneck* [id number] IMPRESSION: 1. No evidence of large vessel occlusion or acute thrombosis in the head. IMPRESSION: 1. No evidence of acute thrombosis or hemodynamically significant stenosis in the neck. REFERENCES: NASCET CRITERIA. The degree of stenosis in the cervical segment of the internal carotid artery is based on NASCET criteria. Normal is no stenosis. Mild is less than 50% stenosis. Moderate is 50-69% stenosis. Severe is 70% to 99% stenosis. Total occlusion is no detectable patent lumen.
[2024-03-27 21:47] LABS: Basophils % 0.4 %; Eosinophils # 0.2 10^3/uL (0.0-0.8); Eosinophils % 3.2 %; Hematocrit 38.9 % (36-47); Lymphocytes # 2.4 10^3/uL (0.8-4.8); Lymphocytes % 32.1 %; Mean Corpuscular HGB Conc 32.6 g/dL (30-55); Mean Corpuscular Hemoglobin 29.7 pg (27-33); Mean Corpuscular Volume 90.9 fl (85-98); Mean Platelet Volume 9.6 fL (7.4-10.4); Monocytes # 0.6 10^3/uL (0.2-0.9); Monocytes % 7.4 %; Neutrophils % 56.8 %; Nucleated Red Blood Cells % 0 %; Platelet Count 273 10^3/cmm (157-399); Red Blood Count 4.28 10^6/uL (3.85-5.65); Red Cell Distribution Width 12.3 % (12.1-15.1); White Blood Count 7.57 10^3/uL (3.29-11.43)
[2024-03-27 21:53] LABS: Erythrocyte Sedimentation Rate 3 mm/hr (0-15)
[2024-03-27 21:58] LABS: INR 0.95 (0.8-1.2)
[2024-03-27 21:59] LABS: Partial Thromboplastin Time 29.5 SECONDS (23.9-36.7)
[2024-03-27 22:03] LABS: HCG, Serum Qual Negative (Negative); Lactic Sepsis W/Reflex 0.7 mmol/L (0.5-2.2)
[2024-03-27 22:04] LABS: Alanine Aminotransferase 12 U/L (0-33); Albumin Level 4.1 g/dL (3.5-5.2); Alkaline Phosphatase 94 U/L (35-105); Anion Gap 13.6 (5-19); Aspartate Amino Transferase 14 U/L (0-32); Blood Urea Nitrogen 8 mg/dL (6-20); C Reactive Protein 3.9 mg/L (0.0-4.9); Calcium 8.7 mg/dL (8.5-10.5); Carbon Dioxide 27 mmol/L (22-29); Chloride 104 mmol/L (98-107); Creatine Phosphokinase 76 U/L (26-192); Creatinine Clr Calc Pharmacy 112.7162; Globulin 2.5 g/dL (1.3-4.6); Glomerular Filtration Rate 90.9 mL/min (90-130); Glucose 115 mg/dL (65-115); Magnesium 1.8 mg/dL (1.7-2.3); Osmolality Calculated 291 mOsm/kg (285-295); Potassium 3.6 mmol/L (3.5-5.1); Sodium 141 mmol/L (136-145); Total Bilirubin 0.3 mg/dL (0.15-1.2); Total Protein 6.6 g/dL (6.6-8.7)
--- NOTE | 2024-03-27 22:07 | W.ED.GENADLT ---
HPI - General Adult General: Chief complaint: General Medical Stated complaint: HEADACHE Time Seen by Provider: 03/27/24 21:02 History of Present Illness: 43-year-old female patient. She presents with head and neck pain. She focuses her pain mainly on the left side, cervical occipital area. She says it has been painful for about a week. Pain is worse with movement. Her neck feels stiff. She has not been running fevers. She has not been sick any other way. There are no other neurological complaints. No numbness, no weakness, no vision changes no language problems. Related Data Home Medications Medication Instructions Recorded Confirmed [id number] 250 2 tab PO Q6H PRN Migraine Headache 02/01/21 02/01/21 mg-250 mg-65 mg tablet (Excedrin Migraine) aspirin-caffeine 845 mg-65 mg oral 1 ea PO ONCE 02/01/21 02/01/21 powder packet (BC Pain Relief) potassium chloride 20 mEq 20 meq PO DAILY PRN unknown 02/01/21 02/01/21 tablet,extended release Previous Rx's Medication Instructions Recorded naproxen 500 mg tablet 500 mg PO BID PRN pain #20 tabs 02/01/21 methocarbamol 750 mg tablet 750 mg PO Q8H #21 tabs 03/27/24 Allergies Allergy/AdvReac Type Severity Reaction Status Date / Time prednisone Allergy RENEEY-Swell Verified 02/01/21 15:00 Lip/Tongue/Throat Physical Exam Const: COMMON NORMALS: alert GENERAL APPEARANCE: cooperative, anxious and ill appearing (Mildly); not frail appearing HENMT: COMMON NORMALS: normocephalic, atraumatic and Normal external nose present HEAD & SCALP: normocephalic and atraumatic FACE & SINUS: normal facial exam and face symmetric NOSE: Normal external nose present Eye: COMMON NORMALS: Equal, round and reactive pupils present and EOMs intact bilaterally PUPIL: Yes Equal, round and reactive pupils present Neck/C-Spine: GENERAL: Yes trachea midline Chest: CHEST: Yes Symmetrical chest wall rise Resp: COMMON NORMALS: normal respiratory effort, No retractions, No use of accessory muscles and clear to auscultation bilaterally AUSCULTATION: clear to auscultation bilaterally Cardio: COMMON NORMALS: regular rate and regular rhythm RATE: regular rate RHYTHM: regular rhythm GI: COMMON NORMALS: Normal to inspection, nondistended, normoactive bowel sounds present Extremity: COMMON NORMALS: no pedal edema Neuro: RUTH COMA SCALE: document GCS findings [place] coma scale eye opening: Spontaneous Ruth coma scale verbal response: Orientated [place] coma scale motor response: Obey commands Ruth coma scale total score: 15 SENSORIUM/ORIENTATION: Yes alert CRANIAL NERVES: Yes CN normal except as noted SPEECH: speech normal SENSORY EXAM: Yes extremities (intact) Psych: COMMON NORMALS: speech normal SPEECH: Yes normal speech Skin: COMMON NORMALS: no rashes or lesions noted GENERAL SKIN EXAM: no rashes or lesions noted Course Vital Signs: Vital signs: Vital Signs Temperature 98.0 F 03/27/24 20:59 Pulse Rate 67 03/27/24 23:50 Respiratory Rate 14 03/27/24 20:59 Blood Pressure 110/78 03/27/24 23:50 Pulse Oximetry 96 03/27/24 23:50 Oxygen Delivery Me thod Room Air 03/27/24 20:59 MDM - General Adult Medical Decision Making Patient with neck pain, stiffness, torticollis like symptoms. She is afebrile here. Her vitals are stable. CBC is normal. CRP and sed rate are normal. BMP is normal. CT of the head and cervical spine are nonacute. As vertebral artery dissection is definitely in the differential in this patient, CTA of the head and neck were performed with no evidence of dissection, no fluid collection or abscess. He is improved after medication, and will be discharged home. Outpatient follow-up. Return for worsening Lab Data 03/27/24 21:42 03/27/24 21:42 Radiology Impressions Cervical Spine CT 03/27/24 21:30 IMPRESSION: 1. No evidence of fracture or subluxation of the cervical spine. 2. 2 cm left-sided thyroid nodule. Correlation with thyroid function tests and follow-up outpatient thyroid ultrasound is recommended. Head CT 03/27/24 21:30 IMPRESSION: 1. No acute intracranial abnormality. Head/Neck CTA 03/27/24 21:30 IMPRESSION: 1. No evidence of large vessel occlusion or acute thrombosis in the head. IMPRESSION: 1. No evidence of acute thrombosis or hemodynamically significant stenosis in the neck. REFERENCES: NASCET CRITERIA. The degree of stenosis in the cervical segment of the internal carotid artery is based on NASCET criteria. Normal is no stenosis. Mild is less than 50% stenosis. Moderate is 50-69% stenosis. Severe is 70% to 99% stenosis. Total occlusion is no detectable patent lumen. Laboratory Results WBC 7.57 10^3/uL (3.29-11.43) 03/27/24 21:42 RBC 4.28 10^6/uL (3.85-5.65) 03/27/24 21:42 Hgb 12.70 g/dL (11.27-16.99) 03/27/24 21:42 Hct 38.9 % (36-47) 03/27/24 21: MCV 90.9 fl (85-98) 03/27/24 21: MCH 29.7 pg (27-33) 03/27/24 21: MCHC 32.6 g/dL (30-55) 03/27/24 21:42 RDW 12.3 % (12.1-15.1) 03/27/24 21:42 Plt Count 273 10^3/cmm (157-399) 03/27/24 21:42 MPV 9.6 fL (7.4-10.4) 03/27/24 21:42 Neut % (Auto) 56.8 % 03/27/24 21:42 Lymph % (Auto) 32.1 % 03/27/24 21:42 [place] % (Auto) 7.4 % 03/27/24 21:42 Eos % (Auto) 3.2 % 03/27/24:42 Baso % (Auto) 0.4 % 03/27/24 21:42 Neut # (Auto) 4.30 10^3/uL (1.8-7.7) 03/27/24 21:42 Lymph # (Auto) 2.4 10^3/uL (0.8-4.8) 03/27/24 21:42 [place] # (Auto) 0.6 10^3/uL (0.2-0.9) 03/27/24 21:42 Eos # (Auto) 0.2 10^3/uL (0.0-0.8) 03/27/24 21:42 Baso # (Auto) 0.0 10^3/uL (0.0-0.1) 03/27/24 21:42 Nucleated RBC % (auto) 0 % 03/27/24 21:42 Nucleated RBCs # 0.0 /100WBC 03/27/24 21:42 ESR 3 mm/hr (0-15) 03/27/24 21:42 PT 12.90 SECONDS (12.1-14.9) 03/27/24 21:42 INR 0.95 (0.8-1.2) 03/27/24 21:42 APTT 29.5 SECONDS (23.9-36.7) 03/27/24 21:42 Sodium 141 mmol/L (136-145) 03/27/24 21:42 Potassium 3.6 mmol/L (3.5-5.1) 03/27/24 21:42 Chloride 104 mmol/L (98-107) 03/27/24 21:42 Carbon Dioxide 27 mmol/L (22-29) 03/27/24 21:42 Anion Gap 13.6 (5-19) 03/27/24 21:42 BUN 8 mg/dL (6-20) 03/27/24 21:42 Creatinine 0.7 mg/dL (0.5-0.9) 03/27/24 21:42 GFR Calculation 90.9 mL/min (90-130) 03/27/24 21:42 Glucose 115 mg/dL (65-115) 03/27/24 21:42 Calculated Osmolality 291 mOsm/kg (285-295) 03/27/24 21:42 Lactic Acid 0.7 mmol/L (0.5-2.2) 03/27/24 21:42 Calcium 8.7 mg/dL (8.5-10.5) 03/27/24 21:42 Magnesium 1.8 mg/dL (1.7-2.3) 03/27/24 21:42 Total Bilirubin 0.3 mg/dL (0.15-1.2) 03/27/24 21:42 AST 14 U/L (0-32) 03/27/24 21:42 ALT 12 U/L (0-33) 03/27/24 21:42 Alkaline Phosphatase 94 U/L (35-105) 03/27/24 21:42 Creatine Kinase 76 U/L (26-192) 03/27/24 21:42 C-Reactive Protein 3.9 mg/L (0.0-4.9) 03/27/24 21:42 Total Protein 6.6 g/dL (6.6-8.7) 03/27/24 21:42 Albumin 4.1 g/dL (3.5-5.2) 03/27/24 21:42 Globulin 2.5 g/dL (1.3-4.6) 03/27/24 21:42 HCG, Qual Negative (Negative) 03/27/24 21:42 All radiology interpretation(s) finalized by discharge Discharge Plan Discharge Patient Disposition: Home Clinical Impression: Spastic torticollis Condition: Stable Prescriptions: Continued methocarbamol 750 mg tablet 750 mg PO Q8H Qty: 21 0RF No Action Excedrin Migraine 250-250-65 mg Tablet 2 tab PO Q6H PRN (Reason: Migraine Headache) BC Pain Relief 845-65 mg Powder In Packet 1 ea PO ONCE potassium chloride 20 mEq tablet extended release 20 meq PO DAILY PRN (Reason: unknown) naproxen 500 mg tablet 500 mg PO BID PRN (Reason: pain) Qty: 20 0RF Discharge Orders: Discharge ED (Routine); Ordered 03/27/24 Ordered By: Alexsander Bailey Patient Instructions: Spasmodic Torticollis (ED), Opioid Safety, Pain Management Activity Restrictions/Additional Instructions: Return for fever, mental status changes, vision changes, weakness, other concerning symptoms. See your doctor next week. Call for an appointment. Coding Level of Care Code ED [employer] Consultant for Rocio Edward
[2024-03-27] MEDS: iohexol 350 mg/mL 500 mL Btl (per mL) IV (22:14)
[2024-03-27] MEDS: dexamethasone 4 mg/mL INJ 8 MG IVP (23:41)
[2024-03-27] MEDS: ketorolac 30 mg/mL INJ IVP (23:41)
[2024-03-27] MEDS: LORazepam 2 mg/mL INJ 1 mL 1 MG IVP (23:41)
[2024-03-27] MEDS: morphine 4 mg/mL SDV 1 mL IVP (23:41)
[2024-03-27 23:50] VITALS: BP 110/78; PULSE 67; O2SAT 96
== END 2024-03-27 23:51 | disposition home or self-care (01) ==
PROVIDERS: Emergency Provider Emergency Medicine
DX: G24.3 Spasmodic torticollis (principal)
CPT/HCPCS: 36415; 70450; 70496; 70498; 72125; 80053; 82550; 83605; 83735; 84703; 85025; 85610; 85651; 85730; 86140; 96374; 96375; 99285; J1100; J1885; J2060; J2270

== ENCOUNTER → 2024-10-19 18:18 | Outpatient (BNVA) | payer OTHER, SELFPAY | PROVIDERS: Visit Provider Nurse Practitioner | DX: J02.9 Acute pharyngitis, unspecified (principal) | CPT/HCPCS: 87880 ==

== ENCOUNTER 2025-02-21 01:03 | Emergency (ER) | payer OTHER, SELFPAY ==
[2025-02-21 01:16] VITALS: BP 151/86; PULSE 96; RESP 20; TEMP 36.6; O2SAT 97; BMI 31.4
--- OUTSIDE RECORDS SUMMARY | 2025-02-21 01:24 | XMS_ITS | Clinical Summary ---
Author Organization [facility] Address [address] Attn: Epic Prelude ADT ELSA FRANCO [address] Care Team Providers Care Medical Affairs Director Name Role Phone Unavailable Primary Care Provider Unavailabl e Allergies Active Allergy Reactions Criticality Noted Date Comments Prednisone Swelling Low 06/04/2018 Medications No known medications Encounters Date Type Department Care Team Description 01/04/2025 External Device Data [facility] ABSTRACTION Provider, Abstract 12/21/2024 External Device Data [facility]STRACTION Provider, Abstract 12/20/2024 External Device Data [facility]STRA[facility] Provider, Abstract 12/13/2024 External Device Data [facility] ABSTRACTION Provider, Abstract from Last 3 Months Social History Tobacco Use Types Packs/Day Years Used Date Smoking Tobacco: Every Day Cigarettes Smokeless Tobacco: Never Alcohol Use Standard Drinks/Week Comments No 0 (1 standard drink = 0.6 oz pur e alcohol) Feeling Safe Answer Date Recorded Are you in a relationship wi th someone who hurts you emotionally and/or physically? 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 Gender Identity Not on file Sexual Orientation Not on file Last Filed Vital Signs Vital Sign Reading Time Taken Comments Blood Pressure 96/56 10/20/2024 1:00 AM CDT Pulse 96 10/20/2024 1:00 AM CDT Temperature 36.4 C (97.6 F) 10/19/2024 9:26 PM CDT Respiratory Rate 15 10/20/2024 12:00 AM CDT Oxygen Saturation 97% 10/20/2024 1:00 AM CDT Inhaled Oxygen Concentration - - Weight 93 kg (205 lb) 10/19/2024 9:26 PM CDT Height 170.2 cm (5' 7 ) 10/19/2024 9:26 PM CDT Body Mass Index 32.11 10/19/2024 9:26 PM CDT Plan of Treatment Health Maintenance Due Date Last Done Comments Pre-Diabetes and Diabetes Screening 1980 DTAP/TDAP/TD VACCINES (1 - Tdap) 07/17/1998 HEPATITIS B VACCINES (1 of 3 - 19+ 3-dose series) 06/1998 HPV/Cotest (21-29) 07/17/2000 HPV VACCINES (1 - 3-dose SCDM series) 07/17/2006 CERVICAL CANCER SCREENING 07/17/2009 HPV/Cotest (30-65) 07/17/2009 PAP SMEAR 07/17/2009 BREAST CANCER SCREENING 2019 COLORECTAL SCREENING 07/17/2024 Colorectal Cancer Screening 07/17/2024 FIT-DNA Q 3 years 07/17/2024 FIT/FOBT Q 1 year 07/17/2024 Flex Sig/CT Colonography Q 5 years 07/17/2024 INFLUENZA VACCINE (#1) 2024 Insurance [employer] EXCHANGE
--- OUTSIDE RECORDS SUMMARY | 2025-02-21 01:24 | XMS_ITS | Patient Health Record ---
Author Organization [facility] Address [address] [place] [address] Care Team Providers Care Recreation Instructor Name Role Phone Daniel Perez [phone] Reason For Referral No Information Medications Medication SIG (Take, Route, Frequency, Duration) Notes Start Date End Date Status Excedrin Migraine 250-250-65 MG Tablet Take 2 tablet(s) by mouth q24h Oral; Duration: 30 Excedrin Migraine Tablet Take 2 tablet(s) by mouth q24h 08/12/2012 Active Mirena 20 mcg/24 hr (5 years) Intrauterine Device Intrauterine; Duration: 0 *please review for potential update for e-prescription and drug interaction check* Mirena 52mg Intrauterine System 08/12/2012 Active Topamax 25 MG Tablet Take 1 tablet(s) by mouth bid Oral; Duration: 30 Topamax (Topiramate) 25mg Tablet Take 1 tablet(s) by mouth bid #60 (Sixty) tablet(s) 02/25/2013 Active Imitrex 20 MG/ACT Solution 1 spray(s) in 1 nostril prn as directed, may repeat dose 2hr later prn, max 2 spry/day. Nasal; Duration: 30 Imitrex (Sumatriptan) 20mg Nasal [place] 1 spray(s) in 1 nostril prn as directed, may repeat dose 2hr later prn, max 2 spry/day. 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 Problems Problem Type SNOMED Code ICD Code Onset Dates Problem Status W/U Status Risk Notes Problem Urge incontinence of urine (31522157) Urge incontinence (788.31) 08/13/19 13 Problem resolved confirmed [id number] 911- Problem Depression (918973997) Depression (311) 01/15/20 13 Problem resolved confirmed [id number] 911- Problem Vitamin D deficiency (24415819) Vitamin D deficiency (268.9) 01/15/20 13 Problem resolved confirmed [id number] 911- Problem Headache (99905970) Headache (307.81) 08/13/19 13 Active confirmed [id number] 911- Problem Thyroid nodule (445558900) Thyroid nodule (241.0) 02/26/20 13 Active confirmed [id number] 911- Problem Needs influenza immunization (613823746) Vaccination against other viral diseases, Influenza (V04.81) 02/26/20 13 Problem resolved confirmed [id number] 911- Problem Acquired hypothyroidism (969252279) Acquired hypothyroidism (244.8) 01/15/20 13 Active confirmed [id number] 911- Plan Of Treatment No Information Insurance Providers Payer Name Payer Address Payer Phone Subscriber Number Group Number Insured Name Patient Relationship to Insured Coverage Start Date Coverage End Date [place] [employer] [address] [place] [address] [phone] [id number] Nafisa Woodard Self - patient is the insured 3 Medical (General) History Surgical History Surgery Date(Month/Year) Cholecystectomy: laparoscopic;
--- NOTE | 2025-02-21 01:47 | XRR_ITS ---
PROCEDURE INFORMATION: Exam: XR Chest Exam date and time: 02/21/2025 1:50 AM Age: 44 years old Clinical indication: Pain; Chest pressure; Additional info: Chest pain TECHNIQUE: Imaging protocol: Radiologic exam of the chest. Views: 1 view. COMPARISON: CT angio chest PE protcl [id number] 05/21/2023 11:18 PM FINDINGS: Lungs: Unremarkable. No consolidation. Pleural spaces: Unremarkable. No pleural effusion. No pneumothorax. Heart/Mediastinum: Unremarkable. No cardiomegaly. Bones/joints: Unremarkable. XR/XR chest 1V portable [id number] IMPRESSION: No acute findings.
--- NOTE | 2025-02-21 01:47 | CTR_ITS ---
PROCEDURE INFORMATION: Exam: CT Neck With Contrast Exam date and time: 02/21/2025 2:35 AM Age: 44 years old Clinical indication: Mass, lump, or swelling in neck; Anterior; Neck pain and painful swallowing; Additional info: Progressive neck pain/swelling, difficulty swallowing subjec TECHNIQUE: Imaging protocol: Computed tomography of the neck with contrast. Radiation optimization: All CT scans at this facility use at least one of these dose optimization techniques: automated exposure control; mA and/or kV adjustment per patient size (includes targeted exams where dose is matched to clinical indication); or iterative reconstruction. Contrast material: OMNI 350; Contrast volume: 100 ml; Contrast route: INTRAVENOUS (IV); COMPARISON: 1. CT cervical spin wo con* [id number] 03/27/2024 10:[address] angio chest PE protcl [id number] 05/21/2023 11:18 PM RADIATION DOSE METRICS: Total DLP (mGy-cm): 284.1 FINDINGS: Orbital cavities: Globes and lenses, extraocular muscles, and optic nerves are intact bilaterally. No acute intraorbital abnormality. Paranasal sinuses: Small mucus retention cysts in the left maxillary sinus. Other paranasal sinuses are clear. Mastoid air cells: Mastoid air cells are clear bilaterally. Salivary glands: The right and left parotid glands are unremarkable. The right and left submandibular glands are unremarkable. Pharynx: Unremarkable. No significant tonsillar enlargement. Larynx: The larynx is unremarkable. The epiglottis is unremarkable. Thyroid: 3.6 x 2.3 x 1.8 cm partially cystic and solid nodule in the left thyroid lobe is stable in size compared with 05/21/2023 (series 7, image 36 and series 3, image 95). Trachea: Trachea is midline and patent. Lungs: Visualized lungs are clear. Lymph nodes: No lymphadenopathy. Vasculature: Cervical vessels are patent. Bones/joints: Stable degenerative changes in the spine. Soft tissues: No soft tissue swelling/emphysema. No radiopaque foreign body. CT/CT neck w con* [id number] IMPRESSION: 1. No acute abnormality of the cervical soft tissues. 2. 3.6 x 2.3 x 1.8 cm partially cystic and solid nodule in the left thyroid lobe is stable in size compared with 05/21/2023. Follow-up non-emergent thyroid ultrasound is recommended. 3. Incidental/nonacute findings are listed in the report. COMMENTS: Consistent with the [employer]'s Incidental Findings Committee white paper (J Am Windy Radiol 2015): In patients aged 35 years and older with an incidental thyroid nodule equal to or greater than 1.[address], MRI or extrathyroidal US, further evaluation with dedicated thyroid US is recommended for patients with normal life expectancy and without comorbidities. For smaller nodules without suspicious features, no further evaluation or follow up is recommended.
--- NOTE | 2025-02-21 01:53 | W.ED.URI ---
HPI - URI/Sore Throat General: Chief Complaint: Upper Respiratory Infection Stated Complaint: weak neck swelling sore cant turn neck well Time Seen by Provider: 02/21/25 01:07 History of Present Illness: 44-year-old female With a past medical history of hypothyroidism off treatment for many years, does not know any other specific medical diagnoses she has been given however does appear to receive treatment for pain related syndrome such as migraine treatments, NSAIDs, she also reports recurrent UTIs and recurrent dental infections in the past, presenting emergency department with approximately 1 to 2-week history of nonspecific lethargy fatigue, 2 to 3-day history of multiple symptoms including right-sided neck pain and swelling, difficulty moving her neck, confusion, chest pain, shortness of breath, subjective chills, rashes to the skin, poor appetite, pressure to the left side of the face, intermittent blurry vision not currently present, intermittent headaches not currently present, generalized feeling of unwellness. Denies abdominal pain vomiting or diarrhea, no loss of consciousness, no falls or trauma Related Data Home Medications ?Medication ?Instructions ?Recorded ?Confirmed [id number] 250 2 tab PO Q6H PRN Migraine Headache 02/01/21 02/20/25 mg-250 mg-65 mg tablet (Excedrin Migraine) aspirin-caffeine 845 mg-65 mg oral 1 ea PO ONCE 02/01/21 02/20/25 powder packet (BC Pain Relief) potassium chloride 20 mEq 20 meq PO DAILY PRN unknown 02/01/21 02/20/25 tablet,extended release Previous Rx's ?Medication ?Instructions ?Recorded naproxen 500 mg tablet 500 mg PO BID PRN pain #20 tabs 02/01/21 methocarbamol 750 mg tablet 750 mg PO Q8H #21 tabs 03/27/24 diclofenac sodium 1 % topical gel 4 g topical QID PRN shoulder pain 02/20/25 #50 grams Allergies Allergy/AdvReac Type Severity Reaction Status Date / Time prednisone Allergy ALGY-Swell Verified 02/20/25 17:06 Lip/Tongue/Throat [facility] ED PFSH: Social History Smoking and tobacco/nicotine status: current every day tobacco/nicotine user Female Reproductive History: Date of last menstrual period: 02/15/25 Physical Exam Narrative: EXAM NARRATIVE: Gen: A&Ox4, no acute distress, nontoxic appearing HEENT: Normocephalic, atraumatic, no scleral icterus, external ears normal, moist mucous membranes, bilateral tympanic membranes no erythema or bulging effusions Neck: Supple, full range of motion, no observable masses,negative Brudzinski and Kernig, there is tenderness to palpation to the right side of the neck with mild soft tissue fullness, no sublingual or submental swelling, no sialoadenitis clinically, no cervical adenopathy Lungs: No Respiratory distress, Lungs clear to auscultation bilaterally no rales, rhonchi, wheezing CV: Regular rate and rhythm, no murmur, no pitting edema to lower extremities bilaterally Abdomen: Soft, nondistended, nontender to palpation MSK: No joint swelling, FROM all 4 extremities Skin: Nonspecific mottled discoloration of the skin present throughout the trunk and bilateral upper and lower extremities, no lexus petechiae, no vesicles, no bullae Neuro: Alert and oriented, no slurred speech, sensation and strength grossly intact all 4 extremities, no dysmetria, extraocular muscles intact, pupils equal reactive to light, visual worley intact bilaterally, ambulates with a steady gait, negative Romberg Psych: Appropriate for situation. Course Vital Signs: Vital signs: Vital Signs Temperature 97.9 F 02/21/25 01:16 Pulse Rate 73 02/21/25 04:36 Respiratory Rate 20 H 02/21/25 01:16 Blood Pressure 136/66 02/21/25 04:36 Pulse Oximetry 97 02/21/25 04:36 Oxygen Delivery Me thod Room Air 02/21/25 04:36 MDM - URI/Sore Throat Medical Decision Making 44-year-old female past medical history of reported hypothyroidism but currently not on any chronic medications, recurrent UTIs, presenting with multiple symptoms including chest pain, urinary frequency/dysuria currently taking leftover antibiotics from a previous dental infection for a suppose UTI, headaches intermittent, blurry vision intermittent, right-sided neck pain and stiffness diagnosed as a cyst drained neck by urgent care earlier today with an appointment to follow-up tomorrow, subjective chills, on exam patient has normal hemodynamics, she does not appear acutely toxic or ill, she is alert and oriented x 4 without dysarthria or facial paralysis, neurologic exam reassuring, plan to obtain broad workup given unclear etiology of the patient's symptoms, rule out life-threatening etiologies such as myxedema coma although less likely given patient awake and alert, rule out soft tissue neck infection, rule out acute metabolic encephalopathy such as hyponatremia, acute renal failure, hyperglycemia/DKA, rule out ACS, reassess for disposition Lab Data Labs with no anemia, no leukocytosis, minimal hypokalemia 3.3 not clinically relevant, normal renal function, TSH elevated but with normal free T4, negative troponin, normal LFTs, urinalysis negative for UTI 02/21/25 02:12 02/21/25 02:12 Radiology Impressions Chest X-Ray 02/21/25 01:47 IMPRESSION: No acute findings. Neck CT 02/21/25 01:47 IMPRESSION: 1. No acute abnormality of the cervical soft tissues. 2. 3.6 x 2.3 x 1.8 cm partially cystic and solid nodule in the left thyroid lobe is stable in size compared with 05/21/2023. Follow-up non-emergent thyroid ultrasound is recommended. 3. Incidental/nonacute findings are listed in the report. COMMENTS: Consistent with the [employer]'s Incidental Findings Committee white paper (J Am Windy Radiol 2015): In patients aged 35 years and older with an incidental thyroid nodule equal to or greater than 1.[address], MRI or extrathyroidal US, further evaluation with dedicated thyroid US is recommended for patients with normal life expectancy and without comorbidities. For smaller nodules without suspicious features, no further evaluation or follow up is recommended. Laboratory Results WBC 8.58 10^3/uL (3.29-11.43) 02/21/25 02:12 RBC 4.77 10^6/uL (3.85-5.65) 02/21/25 02:12 Hgb 14.20 g/dL (11.27-16.99) 02/21/25 02:12 Hct 43.7 % (36-47) 02/21/25 02:12 MCV 91.6 fl (85-98) 02/21/25 02:12 MCH 29.8 pg (27-33) 02/21/25 02:12 MCHC 32.5 g/dL (30-55) 02/21/25 02:12 RDW 12.4 % (12.1-15.1) 02/21/25 02:12 Plt Count 249 10^3/cmm (157-399) 02/21/25 02:12 MPV 9.8 fL (7.4-10.4) 02/21/25 02:12 Neut % (Auto) 53.0 % 02/21/25 02:12 Lymph % (Auto) 38.8 % 02/21/25 02:12 [place] % (Auto) 5.7 % 02/21/25 02:12 Eos % (Auto) 1.7 % 02/21/25 02:12 Baso % (Auto) 0.6 % 02/21/25 02:12 Neut # (Auto) 4.54 10^3/uL (1.8-7.7) 02/21/25 02:12 Lymph # (Auto) 3.3 10^3/uL (0.8-4.8) 02/21/25 02:12 [place] # (Auto) 0.5 10^3/uL (0.2-0.9) 02/21/25 02:12 Eos # (Auto) 0.2 10^3/uL (0.0-0.8) 02/21/25 02:12 Baso # (Auto) 0.1 10^3/uL (0.0-0.1) 02/21/25 02:12 Nucleated RBC % (auto) 0 % 02/21/25 02:12 Nucleated RBCs # 0.0 /100WBC 02/21/25 02:12 PT 12.50 SECONDS (12.1-14.9) 02/21/25 02:12 INR 0.87 (0.8-1.2) 02/21/25 02:12 APTT 28.4 SECONDS (23.9-36.7) 02/21/25 02:12 Sodium 140 mmol/L (136-145) 02/21/25 02:12 Potassium 3.3 mmol/L (3.5-5.1) L 02/21/25 02:12 Chloride 100 mmol/L (98-107) 02/21/25 02:12 Carbon Dioxide 26 mmol/L (22-29) 02/21/25 02:12 Anion Gap 17.3 (5-19) 02/21/25 02:12 BUN 15 mg/dL (6-20) 02/21/25 02:12 Creatinine 0.7 mg/dL (0.5-0.9) 02/21/25 02:12 GFR Calculation 90.5 mL/min (90-130) 02/21/25 02:12 Glucose 102 mg/dL (65-115) 02/21/25 02:12 Calculated Osmolality 291 mOsm/kg (285-295) 02/21/25 02:12 Calcium 10.4 mg/dL (8.5-10.5) 02/21/25 02:12 Magnesium 1.8 mg/dL (1.7-2.3) 02/21/25 02:12 Total Bilirubin 0.3 mg/dL (0.15-1.2) 02/21/25 02:12 AST 11 U/L (0-32) 02/21/25 02:12 ALT 12 U/L (0-33) 02/21/25 02:12 Alkaline Phosphatase 109 U/L (35-105) H 02/21/25 02:12 Creatine Kinase 71 U/L (26-192) 02/21/25 02:12 Troponin T Baseline 7 ng/L (0-10) 02/21/25 02:12 NT-Pro-B Natriuret Pep < 36 pg/mL (0-125) 02/21/25 02:12 Total Protein 7.3 g/dL (6.6-8.7) 02/21/25 02:12 Albumin 4.6 g/dL (3.5-5.2) 02/21/25 02:12 Globulin 2.7 g/dL (1.3-4.6) 02/21/25 02:12 Lipase 18 U/L (13-60) 02/21/25 02:12 TSH 7.68 uIU/mL (0.27-4.20) H 02/21/25 02:12 Free T4 1.10 ng/dL (0.82-1.77) 02/21/25 02:12 Urine Color Yellow (Yellow) 02/21/25 05:11 Urine Appearance Clear (CLEAR) 02/21/25 05:11 Urine pH 5.5 (5-7) 02/21/25 05:11 Ur Specific [place] 1.090 (1.005-1.030) H 02/21/25 05:11 Urine Protein Negative (Negative) 02/21/25 05:11 Urine Glucose (UA) Negative (Normal) 02/21/25 05:11 Urine Ketones Negative (Negative) 02/21/25 05:11 Urine Blood Negative (Negative) 02/21/25 05:11 Urine Nitrate Negative (Negative) 02/21/25 05:11 Urine Bilirubin Negative (Negative) 02/21/25 05:11 Urine Urobilinogen 0.2 mg/dL (Negative) 02/21/25 05:11 Ur Leukocyte Esterase Negative (Negative) 02/21/25 05:11 Amorphous Sediment Not Reportable 02/21/25 05:11 Influenza A (PCR) Negative (Negative) 02/21/25 02:14 Influenza Type B (PCR) Negative (Negative) 02/21/25 02:14 RSV (PCR) Negative (Negative) 02/21/25 02:14 SARS-CoV-2 (PCR) Negative (Negative) 02/21/25 02:14 All radiology interpretation(s) finalized by discharge ED provider radiology interpretation(s): CT neck showing complex mass to the left thyroid region stable since 2023, no other acute findings EKG Data EKG 1: I personally reviewed and interpreted this EKG as follows: EKG interpretation date: 02/21/25 EKG interpretation time: 02:20 Interpretation: Sinus rhythm at 80 bpm with sinus arrhythmia, no STEMI, no ectopy, QTc 368 ms Discharge Plan Discharge Patient Disposition: Home Clinical Impression: Upper respiratory infection Condition: Stable Prescriptions: No Action diclofenac sodium 1 % gel 4 g topical QID PRN (Reason: shoulder pain) Qty: 50 0RF Excedrin Migraine 250-250-65 mg Tablet 2 tab PO Q6H PRN (Reason: Migraine Headache) BC Pain Relief 845-65 mg Powder In Packet 1 ea PO ONCE potassium chloride 20 mEq tablet extended release 20 meq PO DAILY PRN (Reason: unknown) naproxen 500 mg tablet 500 mg PO BID PRN (Reason: pain) Qty: 20 0RF methocarbamol 750 mg tablet 750 mg PO Q8H Qty: 21 0RF Discharge Orders: Discharge ED (Routine); Ordered 02/21/25 Ordered By: Jarrell Shaffer Referrals: Sariah Serrano MD [Staff Physician, Family Practice] Patient Instructions: Patient Portal & Alexis Instructions, Acute Neck Pain (ED) Print Language: Japanese Coding Level of Care Code ED User Support Specialist for Chg Fwce
--- NOTE | 2025-02-21 02:14 | ECG_ITS ---
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 Measurements Intervals [place] Rate: 80 P: 62 NE: 161 QRS: 15 QRSD: 76 T: 39 QT: 332 QTc: 383 Interpretive Statements SINUS RHYTHM WITH SINUS ARRHYTHMIA LOW QRS VOLTAGE IN PRECORDIAL LEADS [QRS DEFLECTION < 1.0 mV IN CHEST LEADS] Compared to ECG 05/21/2023 22:52:49 Low QRS voltage now present Sinus tachycardia no longer present T-wave abnormality no longer present Electronically Signed On 02-21-2025 23:50:37 CDT by Joann Akhtar M.D. [email or web address]
[2025-02-21 02:20] LABS: Hematocrit 43.7 % (36-47); Hemoglobin 14.20 g/dL (11.27-16.99); Mean Corpuscular HGB Conc 32.5 g/dL (30-55); Mean Corpuscular Hemoglobin 29.8 pg (27-33); Mean Corpuscular Volume 91.6 fl (85-98); Nucleated Red Blood Cells % 0 %; Platelet Count 249 10^3/cmm (157-399); Red Blood Count 4.77 10^6/uL (3.85-5.65); White Blood Count 8.58 10^3/uL (3.29-11.43)
[2025-02-21 02:32] LABS: INR 0.87 (0.8-1.2); Prothrombin Time 12.50 SECONDS (12.1-14.9)
[2025-02-21 02:33] LABS: Partial Thromboplastin Time 28.4 SECONDS (23.9-36.7)
[2025-02-21] MEDS: iohexol 350 mg/mL 500 mL Btl (per mL) IV (02:40)
[2025-02-21 02:41] LABS: Troponin(5th) Baseline 7 ng/L (0-10)
[2025-02-21 02:49] LABS: Alanine Aminotransferase 12 U/L (0-33); Albumin Level 4.6 g/dL (3.5-5.2); Alkaline Phosphatase 109 U/L (35-105); Anion Gap 17.3 (5-19); Aspartate Amino Transferase 11 U/L (0-32); Blood Urea Nitrogen 15 mg/dL (6-20); Calcium 10.4 mg/dL (8.5-10.5); Carbon Dioxide 26 mmol/L (22-29); Chloride 100 mmol/L (98-107); Creatinine Clr Calc Pharmacy 117.4836; Free T4 Free Thyroxine 1.10 ng/dL (0.82-1.77); Globulin 2.7 g/dL (1.3-4.6); Glucose 102 mg/dL (65-115); Lipase 18 U/L (13-60); Magnesium 1.8 mg/dL (1.7-2.3); NT Pro B Type Natriuretic Pept < 36 pg/mL (0-125); Osmolality Calculated 291 mOsm/kg (285-295); Potassium 3.3 mmol/L (3.5-5.1); Sodium 140 mmol/L (136-145); Thyroid Stimulating Hormone 7.68 uIU/mL (0.27-4.20); Total Protein 7.3 g/dL (6.6-8.7)
[2025-02-21 02:57] VITALS: BP 134/87; PULSE 83; O2SAT 100
[2025-02-21 03:08] LABS: Respiratory Syncytial Virus Ce NEGATIVE (Negative); SARS-CoV-2 PCR NEGATIVE (Negative)
[2025-02-21 04:36] VITALS: BP 136/66; PULSE 73; O2SAT 97
[2025-02-21 05:33] LABS: Glucose Urine UA Negative (Normal); Nitrate Urine Negative (Negative)
[2025-02-21 05:41] LABS: Specific Gravity, Urine 1.090 (1.005-1.030); UA Manual Slide Review YES
[2025-02-21 05:52] VITALS: BP 129/90; PULSE 97; O2SAT 96
[2025-02-21 06:19] LABS: UA Slide Review UA Slide Review Perf
--- NOTE | 2025-02-21 09:38 | DCPLANNER ---
Message sent to [facility] to establish
== END 2025-02-21 06:01 | disposition home or self-care (01) ==
PROVIDERS: Emergency Provider Student in an Organized Health Care Education/Training Program
DX: J06.9 Acute upper respiratory infection, unspecified (principal); Z11.52 Encounter for screening for COVID-19; Z72.0 Tobacco use
CPT/HCPCS: 70491; 71045; 80053; 81001; 82550; 83690; 83735; 83880; 84439; 84443; 84484; 85025; 85610; 85730; 87637; 93005; 96361; 96374; 99285; J1885; J7030